=== PATIENT | female | born 1955 | race Hispanic/Latino ===

== ENCOUNTER 2018-11-04 10:16 | Emergency (ER) | payer MEDICARE ==
[~2018-11-04 10:16] MED LIST: ATOR40TA71 PO; CARV3.12 PO; CLOP75TA32 PO; INSU300I SQ; ISOS30TA6 PO; METF-446 PO; VENL75TA89 PO
[2018-11-04] MEDS ORDERED: CLINDAMYCIN HCL 150 MG CAP ONE (10:28)
== END 2018-11-04 11:16 | disposition home or self-care (01) ==
LOC: EDH 10:16
DX: L03.314 Cellulitis of groin (principal)